=== PATIENT | female | born 1995 | race American Indian/Alaskan Native ===

== ENCOUNTER 2019-02-11 11:29 | Emergency (ER) | payer SELFPAY ==
[2019-02-11 12:00] VITALS: BP 142/84
--- NOTE | 2019-02-11 12:00 | Event Note ---
ED Screening Note ED Screening Note: pt presents for three days of chest heaviness states she has had before and it spontaneously resolved states she has had increased belching attempted to take gas x without much relief no SOB no N/V LNMP: january 25 no PMHx no daily meds no allergies to meds +smoker +rare ETOH use no drug use This initial assessment/diagnostic orders/clinical plan/treatment(s) is/are subject to change based on patients health status, clinical progression and re- assessment by fellow clinical providers in the ED. Further treatment and workup at subsequent clinical providers discretion. Patient/guardian urged not to elope from the ED as their condition may be serious if not clinically assessed and managed. Initial orders include: CXR, EKG, urine preg, UA
--- NOTE | 2019-02-11 14:47 | Emergency Department Report ---
ED General Adult HPI - General Chief complaint: Chest Pain Stated complaint: CHEST PAIN Time Seen by Provider: 02/11/19 11:57 Source: patient Mode of arrival: Ambulatory Limitations: No Limitations - History of Present Illness Initial comments: pt presents for three days of chest heaviness states she has had before and it spontaneously resolved states she has had increased belching attempted to take gas x without much relief no SOB No radiation Currently no chest pain no N/V LNMP: january 25 no PMHx no daily meds no allergies to meds +smoker +rare ETOH use no drug use Onset/Timin -: days(s) Location: chest Radiation: non-radiation Severity scale (0 -10): 0 Consistency: intermittent Improves with: none Worsens with: none - Related Data Allergies Allergy/AdvReac Type Severity Reaction Status Date / Time No Known Allergies Allergy Unverified 02/11/19 11:30 ED Review of Systems ROS: Stated complaint: CHEST PAIN Other details as noted in HPI Comment: All other systems reviewed and negative Respiratory: denies: cough, shortness of breath, wheezing Cardiovascular: chest pain Gastrointestinal: denies: abdominal pain, nausea, diarrhea ED Past Medical Hx - Past Medical History Previous Medical History?: No - Surgical History Past Surgical History?: No - Social History Smoking Status: Never Smoker Substance Use Type: Alcohol ED Physical Exam - General Limitations: No Limitations General appearance: alert, in no apparent distress - Head Head exam: Present: atraumatic, normocephalic - Eye Eye exam: Present: normal appearance - ENT ENT exam: Present: mucous membranes moist - Neck Neck exam: Present: normal inspection - Respiratory Respiratory exam: Present: normal lung sounds bilaterally. Absent: respiratory distress - Cardiovascular Cardiovascular Exam: Present: regular rate, normal rhythm. Absent: systolic murmur, diastolic murmur, rubs, gallop - GI/Abdominal GI/Abdominal exam: Present: soft, normal bowel sounds - Extremities Exam Extremities exam: Present: normal inspection - Back Exam Back exam: Present: normal inspection - Neurological Exam Neurological exam: Present: alert, oriented X3 - Psychiatric Psychiatric exam: Present: normal affect, normal mood - Skin Skin exam: Present: warm, dry, intact, normal color. Absent: rash ED Course Vital Signs 02/11/19 11:57 Temperature 98.4 F Pulse Rate 78 Respiratory 16 Rate Blood Pressure 142/84 O2 Sat by Pulse 100 Oximetry ED Medical Decision Making - Medical Decision Making 23-year-old female comes in with intermittent chest pain currently with no chest pain right now. Patient has a normal EKG. She has no risk factors for any cardiac event. Patient be discharged home to follow up with her primary care provider. Critical care attestation.: If time is entered above; I have spent that time in minutes in the direct care of this critically ill patient, excluding procedure time. ED Disposition Clinical Impression: Atypical chest pain Disposition: DC-01 TO HOME OR SELFCARE Is pt being admited?: No Does the pt Need Aspirin: No Condition: Stable Instructions: Chest Pain (ED) Additional Instructions: Follow-up with her primary care provider if symptoms persist or gets worse. Referrals: MYLA AGUERO MD [Primary Care Provider] - 3-5 Days
== END 2019-02-11 14:41 | disposition home or self-care (01) ==
LOC: ED 11:29
DX: R07.89 Other chest pain (principal)
CPT/HCPCS: 93005; 93010; 99282